=== PATIENT | male | born 1960 ===

== ENCOUNTER 2021-11-09 20:30 | Emergency (ER) | payer OTHER ==
[~2021-11-09] VITALS: Ht 170.2 cm; Wt 68.0 kg
[2021-11-09 20:30] VITALS: BP 134/99
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
[2021-11-09 21:07] LABS: BASOPHIL # 0.1 10^3/uL (0.0-0.1); BASOPHIL % 0.5 % (0.0-0.2); EOSINOPHIL # 0.1 10^3/uL (0.0-0.2); EOSINOPHIL % 0.4 % (0.0-5.0); LYMPHOCYTES # 0.51 10^3/uL1 (1.0-4.8); LYMPHOCYTES % 4.3 % (24.0-44.0); MEAN CORP HGB 31.9 pg (26-34); MONOCYTES # 0.7 10^3/uL (0.3-0.8); MONOCYTES % 6.2 % (5.0-12.0); NEUTROPHIL # 10.4 10^3/uL (1.8-7.7); NEUTROPHILS % 88.3 % (41.0-85.0); PLATELET COUNT 214 10^3/uL (150-400); RED CELL DISTRIBUTION WIDTH 12.5 % (11.5-14.5)
--- NOTE | 2021-11-09 21:10 | NUR ---
To radiology by mouna accompanied by radiocommunications technician and this RN.
[2021-11-09 21:28] LABS: LYMPHOCYTE 4 % (25-36); MONOCYTE 5 % (3-9); SEGMENTED NEUTROPHILS 90 % (31-76)
--- NOTE | 2021-11-09 21:30 | NUR ---
Returned from radiology accompanied by maxine mccarty and this RN.
--- NOTE | 2021-11-09 21:43 | NUR ---
Pt has been talking almost continuously since this nurse in attendance. Speaks about druze ideas, then talks about how he is on medical marijuana and curses about "[place] Laws." then speaks about his family and how Addendum: 11/09/21 at 2146 by CHANTELEDUARDO ...and how the government is "ruining the country" and so on. Jumping from one topic to another.
[2021-11-09 21:46] LABS: CARBON DIOXIDE 26.4 mmol/L (20.0-32)
[2021-11-09 21:47] LABS: BILIRUBIN,URINE NEGATIVE (NEGATIVE); UROBILINOGEN,URINE 0.2 E.U./dL (0.2)
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
[2021-11-09 21:51] VITALS: BP 119/75
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
--- NOTE | 2021-11-09 22:11 | NUR ---
Dr Arenas in room to see pt and c-collar removed by physician.
--- NOTE | 2021-11-09 22:16 | NUR ---
Physician mentioned calling pt's family to update them and he became angry and tried to jump out of the bed stating "do not tell them! They will come here and kill me!"
--- NOTE | 2021-11-09 22:19 | NUR ---
Security at bedside and pt settled down but is still rambling. States "I want to be arrested!" and "Im not staying here!"
--- NOTE | 2021-11-09 22:24 | NUR ---
[facility]CS[employer] x 2 at bedside after being called by ER staff due to pt agitated, cussing, threatening to leave.
[2021-11-09 22:50] VITALS: BP 149/97
--- NOTE | 2021-11-09 22:55 | NUR ---
[facility] PHONED [facility]. THEY DO HAVE A BED AVAILABLE. THEY WILL REVIEW THE LABS THEY HAVE JUST RECEIVED AND LET US KNOW IF HE IS ACCEPTED.
--- NOTE | 2021-11-09 23:26 | NUR ---
Pt resting on left side with eyes closed.
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
[2021-11-09 23:57] VITALS: BP 146/92
--- NOTE | 2021-11-10 00:13 | NUR ---
Pt is sleeping on left lateral. Resps are even and nonlabored.
--- NOTE | 2021-11-10 00:30 | NUR ---
[facility] ACCEPTED SPOKE TO LAILA AT [facility]. PY HAS BEEN ACCEPTED TO [facility] LONG HE COMES ON PAPERS. NOTIFIED DR. BENTLEY AND DISPATCHED INVOICE CLASSIFICATION CLERK TO SIGN PAPERS.
--- NOTE | 2021-11-10 01:00 | NUR ---
Pt sleeping soundly. Woke up for DC of IV. FARIHA x 2 @ bedside.
--- NOTE | 2021-11-10 01:05 | NUR ---
Pt left ER ambulatory accompanied by [facility]CS[facility] FARIHA x 2.
--- NOTE | 2021-11-10 14:06 | PCM.EKG ---
[facility] Test Date: 2021-11-09 Test Time: 20:36:39 Pat Name: TRACEY NOE Department: Room: Gender: M Cryptographer: YOG : 1960 Requested By: OSBALDO BENTLEY Order Number: [id number] Reading MD: Measurements Intervals [place] Rate: 102 P: 72 TX: 122 QRS: 70 QRSD: 92 T: 59 QT: 353 QTc: 460 Interpretive Statements Sinus tachycardia RSR' in V1 or V2, right VCD or RVH No previous ECG available for comparison Please click the below link to view image of tracing.
== END 2021-11-10 01:05 ==
LOC: ER 20:30 → EDBD 20:30 → ER 11-10 01:05
DX: F23 Brief psychotic disorder (principal); Z20.822 Contact with and (suspected) exposure to COVID-19; F12.90 Cannabis use, unspecified, uncomplicated; I10 Essential (primary) hypertension; V49.40XA Driver injured in collision with unspecified motor vehicles in traffic accident, initial encounter; Y93.89 Activity, other specified; Y92.89 Other specified places as the place of occurrence of the external cause; Y99.8 Other external cause status
CPT/HCPCS: 36415; 70450; 71250; 72125; 74176; 80053; 80307; 81001; 82077; 82306; 82550; 82553; 84443; 84484; 85025; 85610; 85730; 86592; 87086; 87426; 93005; 99285